=== PATIENT | male | born 1945 | race Caucasian/White ===

== ENCOUNTER → 2016-05-11 07:28 | Day surgery (SDC) | payer MEDICARE ==
[~2016-05-11 07:28] MED LIST: Acetaminophen TAB* 325 MG ONE; Acetaminophen TAB* 325 MG PO PRN; BSS OPTH.SOL* BTL ONE; Bacitracin OPHTH.OINT* 3.5 GM ONE; Buffered Lidocaine 1% SYRIN* 3 ML/SYR SYRINGE INTRADERM ONE; Lidocain 1% EPI 1:100,000 * 30 ML MDV ONE; Midazolam* 1 MG/ML 5 ML VIAL (5 MG) ONE; Ondansetron INJ* 2 MG/ML VIAL ONE; Propofol* 10 MG/ML 20 ML BTL IV PUSH ONE; fentaNYL* 50 MCG/ML 2 ML VIAL (100 MCG VIAL) ONE
[2016-05-11 10:02] VITALS: BP 150/79
--- NOTE | 2016-05-12 05:17 | OP ---
DATE OF OPERATION: 05/11/16 - [facility] DATE OF : 41 SURGEON: Ethan Cook MD PROFESSOR OF BIOSTATISTICS: None. ANESTHESIOLOGIST: Geri Olivas MD ANESTHESIA: Local MAC. PRE-OP DIAGNOSIS: Suspicious lesion, left lower eyelid. POST-OP DIAGNOSIS: Suspicious lesion, left lower eyelid. OPERATIVE PROCEDURE: Excision of suspicious lesion of the left lower eyelid with reconstruction of lower lid. COMPLICATIONS: None. ESTIMATED BLOOD LOSS: Minimal. DESCRIPTION OF PROCEDURE: The patient was brought to the operating room and a drop of tetracaine was placed in his left eye. A marking pen was used to titi the proposed outlines of the wedge resection borders on the left lower lid with reasonable margin between what appeared to be a basal cell carcinoma and healthy tissue. This pentagonal area was anesthetized using 1% lidocaine with epinephrine, which was injected under the skin. The patient was then prepped and draped in the usual sterile fashion for ophthalmic surgery and attention was directed to the left lower lid again. A Mckeon scissors was used to create two parallel vertical incisions through the full thickness eyelid surrounding the probable basal cell carcinoma both medially and laterally. Unfortunately, in order to remove this tumor and try to achieve tumor free margins, the puncta and proximal aspect of the inferior canaliculus needed to be sacrificed. The incisions were continued in the pentagonal fashion to remove a wedge of tissue. This tissue was tagged nasally with a 6-0 silk suture and sent to pathology. Hemostasis was achieved with cauterization. Inspection revealed that approximately 30% to 35% of the lower lid had been removed. It appeared that a direct closure would be possible, although the possibility of performing a lateral cantholysis was entertained. It appeared that there was not enough tension on the wound to cause a problem. At this point , a 6-0 Vicryl suture was used in an interrupted fashion to close the tarsal plate with care not to have any sutures extend posterior to the tarsus or to the conjunctival aspect. Then, a 6-0 silk suture was placed at the margin through the Meibomian orifice line to the other side and tied to create a smooth even margin. A second suture was placed just posterior to this. Four more 6-0 silk sutures were placed in an interrupted fashion to close the skin and orbicularis. At the end of the case, the lower lid wound was well closed without undue tension and the position of the lower eyelid appeared acceptable. The patient was able to open and close his eyes and had no obvious entropion or ectropion. The most superior suture was left long and incorporated into the inferior suture not to avoid suture and rubbing on the cornea. Topical bacitracin ointment was placed in the eye and on the wound. The patient was sent to the recovery room in stable condition with postop instructions and followup appointment given. [id number]/[facility] #: [id number] ROSA ELENA
== END | disposition home or self-care (01) ==
LOC: OREAST 07:28
PROVIDERS: ATTEND Ophthalmology
DX: C44.119 Basal cell carcinoma of skin of left eyelid, including canthus (principal); Z87.891 Personal history of nicotine dependence; E03.9 Hypothyroidism, unspecified; J30.1 Allergic rhinitis due to pollen
CPT/HCPCS: 88305; A9270-GY; J2250; J2405; J2704; J3010